=== PATIENT | female | born 1950 | race Caucasian/White ===

== ENCOUNTER 2022-08-06 11:50 | Outpatient (CLI) | payer MEDICARE | END 2022-08-06 11:51 | disposition home or self-care (01) | LOC: CSHRAD 11:50 | PROVIDERS: ATTEND Internal Medicine Cardiovascular Disease | DX: R06.02 Shortness of breath (principal); R06.00 Dyspnea, unspecified | CPT/HCPCS: 71046 ==

== ENCOUNTER 2024-10-25 01:09 | Inpatient (IN) | payer OTHER ==
[2024-10-25 01:47] VITALS: BMI 23.0
[2024-10-25] MEDS ORDERED: Calcium Carbonate 500 MG ChewTAB PO PRN (02:24)
[2024-10-25] MEDS ORDERED: Senokot S 8.6-50 MG TAB PO PRN (02:24)
[2024-10-25] MEDS ORDERED: Ipratropium/Albuterol 3 ML NEB NEB PRN (02:27)
[2024-10-25] MEDS: FLU (Fluad Triv) TS24-25 (65UP)/MF59C/PF 45 MCG/0.5 ML Syringe IM ONE (03:06)
[2024-10-25] MEDS: traMADol HCl 50 MG TAB PO SCH (03:17)
[2024-10-25] MEDS: Nicotine 14 MG PATCH TD SCH (03:19)
[2024-10-25] MEDS: methylPREDNISolone Sod Succ 40 MG VIAL IVP SCH (03:19)
[2024-10-25] MEDS: Cefdinir 300 MG CAP PO SCH (03:19)
[2024-10-25] MEDS: Guaifenesin DM 100-10/5 ML UDCUP PO SCH (03:20)
[2024-10-25 03:51] LABS: Anion Gap 14 mmol/L (10-20); BUN (Urea Nitrogen) 5 mg/dL (9.8-20.1); Calc. Creatinine Clearance 63 mL/min (70-130); Calcium 9.8 mg/dL (7.8-10.44); Carbon Dioxide 28 mmol/L (23-31); Chloride 97 mmol/L (98-107); Estimated GFR 82; Glucose 173 mg/dL (83-110); Sodium 135 mmol/L (136-145); Troponin I Less than 0.010 ng/mL (< 0.028)
[2024-10-25] MEDS: Levothyroxine Sodium 25 MCG TAB PO SCH (05:37)
[2024-10-25] MEDS ORDERED: Mometasone 200 MCG/Formoterol 5 MCG 60 PUFF INHALER INH SCH (06:30)
[2024-10-25] MEDS: Ipratropium/Albuterol 3 ML NEB NEB SCH ×2 (07:57→19:40)
[2024-10-25] MEDS: Clopidogrel Bisulfate 75 MG TAB PO SCH (09:21)
[2024-10-25] MEDS: Loratadine 10 MG TAB PO SCH (09:21)
[2024-10-25] MEDS: guaiFENesin ER 600 MG TAB PO SCH (09:21)
[2024-10-25] MEDS: Citalopram 20 MG TAB PO SCH (09:21)
[2024-10-25] MEDS: Amlodipine 5 MG TAB PO SCH (09:21)
[2024-10-25] MEDS: Metoprolol Succinate XL 50 MG ER.TAB PO SCH (09:21)
[2024-10-25] MEDS: Montelukast Sodium 10 mg Tablet PO SCH (09:21)
[2024-10-25] MEDS: Mometasone 100 MCG/PUFF (1 INHALER) INH SCH (09:35)
[2024-10-25 10:25] VITALS: BMI 23.0
[2024-10-25] MEDS: traMADol HCl 50 MG TAB PO PRN (12:10)
[2024-10-25] MEDS: Enoxaparin 40 MG (0.4 mL) SYRINGE SC SCH (20:17)
[2024-10-25] MEDS: Acetaminophen 325 MG TAB PO PRN (20:30)
[2024-10-25] MEDS: Guaifenesin DM 100-10/5 ML UDCUP PO PRN (23:14)
[2024-10-26 04:51] LABS: #Basophils Less than 0.03 10x3/uL (0.0-0.2); #Eosinophils Less than 0.03 10x3/uL (0.0-0.5); #Monocytes 0.44 10x3/uL (0.0-1.1); #Neutrophils 10.77 10x3/uL (1.5-8.4); %Basophils 0.1 % (0.0-2.0); %Lymphocytes 5.7 % (18.0-47.0); %Monocytes 3.7 % (0.0-10.0); %Neutrophils 90.2 % (40.0-75.0); Hemoglobin 12.7 g/dL (12.0-15.5); Mean Corpuscular HGB CONC 35.3 g/dL (32.0-36.0); Mean Corpuscular Hemoglobin 30.2 pg (27.0-33.0); Mean Corpuscular Volume 85.5 fL (81.6-98.3); Mean Platelet Volume 8.7 fL (7.4-10.4); Platelet Count 270 10x3/uL (150-450); RBC Distribution Width 11.8 % (11.5-14.5); Red Blood Cell (RBC) Count 4.21 10x6/uL (3.90-5.03); White Blood Cell (WBC) Count 11.94 10x3/uL (3.5-10.5)
[2024-10-26 05:03] LABS: Anion Gap 15 mmol/L (10-20); BUN (Urea Nitrogen) 7 mg/dL (9.8-20.1); Calc. Creatinine Clearance 72 mL/min (70-130); Calcium 9.2 mg/dL (7.8-10.44); Carbon Dioxide 24 mmol/L (23-31); Chloride 95 mmol/L (98-107); Estimated GFR 91; Glucose 129 mg/dL (83-110); Potassium 3.6 mmol/L (3.5-5.1); Sodium 130 mmol/L (136-145)
[2024-10-26] MEDS: Ondansetron PF 4 MG/2 ML Vial IVP PRN (18:37)
[2024-10-27 05:07] LABS: #Basophils Less than 0.03 10x3/uL (0.0-0.2); #Eosinophils Less than 0.03 10x3/uL (0.0-0.5); #Monocytes 0.42 10x3/uL (0.0-1.1); #Neutrophils 10.44 10x3/uL (1.5-8.4); %Basophils 0.1 % (0.0-2.0); %Eosinophils 0.2 % (0.0-6.0); %Lymphocytes 4.6 % (18.0-47.0); %Monocytes 3.7 % (0.0-10.0); %Neutrophils 91.1 % (40.0-75.0); Hematocrit 34.7 % (34.9-44.5); Hemoglobin 12.3 g/dL (12.0-15.5); Mean Corpuscular HGB CONC 35.4 g/dL (32.0-36.0); Mean Corpuscular Hemoglobin 29.9 pg (27.0-33.0); Mean Corpuscular Volume 84.4 fL (81.6-98.3); Mean Platelet Volume 8.6 fL (7.4-10.4); Platelet Count 280 10x3/uL (150-450); RBC Distribution Width 11.9 % (11.5-14.5); Red Blood Cell (RBC) Count 4.11 10x6/uL (3.90-5.03); White Blood Cell (WBC) Count 11.45 10x3/uL (3.5-10.5)
[2024-10-27 05:22] LABS: Anion Gap 16 mmol/L (10-20); BUN (Urea Nitrogen) 8 mg/dL (9.8-20.1); Calc. Creatinine Clearance 75 mL/min (70-130); Calcium 9.2 mg/dL (7.8-10.44); Carbon Dioxide 24 mmol/L (23-31); Chloride 91 mmol/L (98-107); Estimated GFR 92; Glucose 112 mg/dL (83-110); Potassium 3.8 mmol/L (3.5-5.1); Sodium 127 mmol/L (136-145)
[2024-10-27] MEDS: Sodium Chloride 0.9% 1,000 ML IV SCH (08:46)
[2024-10-27 15:40] VITALS: BP 131/67; TEMP 98.1
== END 2024-10-27 16:45 | disposition home or self-care (01) | DRG 189 ==
LOC: INTOOBSV 01:09 → CSHTELE 01:09 → OBSVTOIN 10-26 11:20
PROVIDERS: ADMIT Student in an Organized Health Care Education/Training Program; ATTEND Internal Medicine
DX: J96.01 Acute respiratory failure with hypoxia (principal); J44.1 Chronic obstructive pulmonary disease with (acute) exacerbation; I10 Essential (primary) hypertension; E03.9 Hypothyroidism, unspecified; R91.1 Solitary pulmonary nodule; E87.6 Hypokalemia; J43.9 Emphysema, unspecified; F41.9 Anxiety disorder, unspecified; F32.A Depression, unspecified; I25.10 Atherosclerotic heart disease of native coronary artery without angina pectoris; E83.42 Hypomagnesemia; Z95.1 Presence of aortocoronary bypass graft; Z90.49 Acquired absence of other specified parts of digestive tract; Z90.79 Acquired absence of other genital organ(s); Z72.0 Tobacco use
CPT/HCPCS: 36415; 71045; 71275; 80048; 80053; 83690; 83735; 83880; 84484; 85025; 87428; 93005; 94640; 94664; 94760; 94762; 96365; 96372; 96375; 96376; G0378; J1650; J1885; J2405; J2919; J3475; J7030; J7620; Q9967